=== PATIENT | male | born 1975 | race Caucasian/White ===

== ENCOUNTER 2017-11-22 12:18 | Inpatient (IN) ==
[2017-11-22] MEDS ORDERED: Ampicillin/Sulbactam 3,000 MG in 0.9 % Sodium Chloride Mini Bag 100 ML IVPB ONE (12:26)
[2017-11-22] MEDS ORDERED: Ketorolac 30 MG/ML VIAL IVP ONE (12:26)
[2017-11-22] MEDS ORDERED: Bumetanide 1 MG/4 ML VIAL IVP ONE (12:26)
--- NOTE | 2017-11-22 12:29 | Emergency Department Note ---
Disposition Clinical Impression: Cellulitis, Scalp laceration Disposition: Admitted As Inpatient Condition: Fair Referrals: NONE,PCP [Primary Care Provider] - Forms: ED Satisfaction Letter Time of Disposition: 12:35 ([facility] OBSHeather) Extremity Problem HPI - General Chief complaint: ED Extremity Problem,Nontraumatic Stated complaint: Bilat Leg pain and swelling Time Seen by Provider: 11/22/17 12:21 Source: EMS Mode of arrival: EMS Limitations: no limitations Nursing Notes Reviewed: Yes Vital Signs Reviewed: Yes - History of Present Illness HPI Narrative: 42-year-old man who has bilateral lower extremity swelling and edema redness hot to touch unable to bear weight because the pain swelling and weeping of the legs he states it just started earlier today she denies any fevers chills lightheadedness or dizziness patient states that he is unable to ambulate because of the swelling feels like he is walking on [employer] chest pain chest pressure palpitations cough hemoptysis or sputum production but does have strong cardiac history as well as congestive heart failure he is noncompliant with his medications and openly admits this he recently also had rola placed in his head and wants the rola removed Pt Subjective Complaint: extremity pain, extremity swelling Onset (ago): day(s) Consistency: constant, Worsening Injury Location: left, right, lower extremity Pain Scale: 10 Quality: aching Improves with: nothing Worsens with: weight bearing, walking Associated symptoms: Reports: myalgias, change in appearance, swelling, redness. Denies: chest pain, shortness of breath, abdominal pain, back pain, bowel/bladder symptoms, fever, arthralgias, rash - Related Data Allergies Allergy/AdvReac Type Severity Reaction Status Date / Time metformin Allergy See Verified 11/14/17 23:34 Comments All systems ED: reviewed and negative except as stated. Review of Systems: As Per HPI Constitutional: Denies: fever, chills, weakness Eyes: Denies: eye pain, eye discharge ENT ED: Denies: ear pain, throat pain Cardiovascular: Denies: chest pain Respiratory: Denies: cough, dyspnea Gastrointestinal: Denies: abdominal pain, nausea, vomiting Genitourinary: Denies: urgency, dysuria, frequency Musculoskeletal: Reports: other (R lower extremity edema 3+ pitting all the way up into the mid thighs bilaterally). Denies: back pain, neck pain Integumentary: Denies: rash, abrasion Neurological: Denies: headache, weakness Psychiatric: Denies: anxiety, depression Endocrine: Denies: fatigue Hematological/Lymphatic: Denies: easy bleeding Allergic/Immunologic: Denies: facial swelling Past Medical History - Past Medical History Attestation: Yes The following information was validated with the patient. Source: patient, old records reviewed, nursing notes reviewed Medical history: Reports: CHF, COPD, diabetes, hyperlipidemia, hypertension Surgical history: Reports: orthopedic, other (Right ankle surgery) Psychiatric history: Reports: anxiety - Social History Smoking Status: Current every day smoker Smokeless Tobacco Status: No Alcohol use: Reports: heavy, recent Drug use: Reports: marijuana Physical Exam - General Limitations: no limitations General appearance: alert, in no apparent distress - Head Head exam: normocephalic, normal inspection, other (Rola present within the scalp area is healing some scab formation but no redness or drainage) - Eye Eye exam: Present: normal appearance ( a piece to be healed), PERRL, EOMI - ENT ENT exam: normal exam, normal oropharynx, mucous membranes moist, TM's normal bilaterally, normal external ear exam - Neck Neck exam: Present: normal inspection, full ROM, trachea midline - Chest Chest inspection: Present: normal inspection, symmetric chest wall rise - Respiratory Respiratory exam: Present: normal lung sounds bilaterally - Cardiovascular Cardiovascular exam: Present: regular rate, normal rhythm, normal heart sounds - Abdominal Exam Abdominal exam: Present: soft, Non-Tender, normal bowel sounds - Expanded Upper Extremity Exam Shoulder exam: Present: normal inspection, full ROM Arm exam: Present: normal inspection, full ROM Elbow exam: Present: normal inspection, full ROM Forearm/Wrist exam: Present: normal inspection, full ROM Hand exam: Present: normal inspection, full ROM Vascular exam: Normal: capillary refill, radial pulse - Expanded Lower Extremity Exam Hip/Pelvis exam: Present: normal inspection, full ROM Upper leg exam: Present: normal inspection, full ROM, swelling Knee exam: Present: normal inspection, full ROM, swelling, erythema Lower leg exam: Present: normal inspection, full ROM, swelling, erythema Ankle exam: Present: normal inspection, full ROM, swelling, erythema Foot/toe exam: Present: normal inspection, full ROM, swelling, erythema, other ( Refill approximate 4 seconds on the digits) Neurovascular/Tendon exam: Present: normal capillary refill, normal fine/light touch. Absent: motor deficit, sensory deficit, tendon deficit Gait: unable to bear weight - Back Exam Back exam: Present: normal inspection, full ROM. Absent: muscle spasm - Neurological Exam Neurological exam: Present: oriented X3, CN II-XII intact - Psychiatric Psychiatric exam: Present: normal affect, normal mood - Skin Skin exam: Present: warm, dry, intact, normal color - Expanded Skin Exam 1 - Bilateral lower extremity swelling edema erythema 3+ pitting palpable pulses but very faint Course Course Narrative: Patient was immediately seen and examined laboratory data was started including blood cultures and lactic acid workup was done try to determine the etiology for swelling in the edema which is most likely secondary to a history of congestive heart failure with ventricular dysfunction started him on antibiotics because the evidence of cellulitis recommended hospitalization patient is agreeable with this time we'll discuss further with - Reevaluation(s) Reevaluation #1: Spoke with Dr. Delacruz who agrees for admission to his service Reevaluation #2: Patient is noted to drink an excessive amount will manage her with Serax CWAL recommended Vital Signs Temperature 99.1 F 11/22/17 12:21 Pulse Rate 109 11/22/17 12:21 Respiratory Rate 16 11/22/17 12:21 Blood Pressure 154/79 11/22/17 12:21 O2 Sat by Pulse Oximetry 95 11/22/17 12:21 Temperature 99.1 F 11/22/17 12:21 Pulse Rate 104 11/22/17 12:27 Respiratory Rate 16 11/22/17 12:21 Blood Pressure 154/79 11/22/17 12:21 O2 Sat by Pulse Oximetry 95 11/22/17 12:21 Oxygen Delivery Oxygen Delivery Room Air Extremity Problem, Nontraumati - Differential Diagnosis Likely: cellulitis, superficial thrombophlebitis, deep venous thrombosis, lower extremity edema - Medical Records Medical records reviewed: Yes I reviewed the patient's medical records. - Lab Data Lab results reviewed: Yes I reviewed the patient's lab results. Result diagrams: 11/22/17 12:45 Lab Results 11/22/17 Range/Units 12:45 WBC 6.8 (4.3-11.1) K/mcL RBC 4.54 (4.19-5.50) M/mcL Hgb 15.0 (12.9-16.9) g/dL Hct 42.2 (37.5-50.1) % MCV 93.0 (83.0-100.0) fL MCH 33.0 (28.0-33.3) pg MCHC 35.5 (31.6-35.5) g/dL RDW 14.1 (11.5-14.5) % Plt Count 183 (140-400) K/mcL MPV 9.9 (9.4-12.4) fL Immature Gran % 0.1 (0-4) % Seg Neutrophils % 45.8 % Lymphocytes % 40.8 % Monocytes % 11.3 % Eosinophils % 1.0 % Basophils % 1.0 % Neutrophils # 3.1 (1.6-8.9) K/mcL Lymphocytes # 2.8 (0.6-4.6) K/mcL Monocytes # 0.8 (0.0-1.3) K/mcL Eosinophils # 0.1 (0.0-0.6) K/mcL Basophils # 0.1 (0.0-0.2) K/mcL - Radiology Data Radiology results reviewed: Yes I reviewed the patient's radiology results. ITS Impressions Chest X-Ray 11/22/17 12:24 IMPRESSION: 1. No acute radiographic finding in the chest. No evidence of pulmonary edema. D/ / Bishnu Deng MD / Bishnu Deng MD Interpreting Provider: Bishnu Deng MD - EKG Data EKG attestation: Yes I reviewed and interpreted this EKG. EKG results narrative: Sinus tach rate 100 SD 144 QRS 89 QT 343 access -[address] segment elevation Critical Care Time Critical Care Time: No
[2017-11-22] MEDS ORDERED: 0.9 % Sodium Chloride 1,000 ML IVC SCH (12:30)
[2017-11-22 12:58] LABS: Basophils # 0.1 K/mcL (0.0-0.2); Eosinophils # 0.1 K/mcL (0.0-0.6); Hematocrit 42.2 % (37.5-50.1); Immature Granulocytes % 0.1 % (0-4); Lymphocytes # 2.8 K/mcL (0.6-4.6); Lymphocytes % 40.8 %; Mean Corpuscular HGB Conc 35.5 g/dL (31.6-35.5); Mean Platelet Volume 9.9 fL (9.4-12.4); Monocytes # 0.8 K/mcL (0.0-1.3); Monocytes % 11.3 %; Neutrophils # 3.1 K/mcL (1.6-8.9); Platelet Count 183 K/mcL (140-400); Red Blood Count 4.54 M/mcL (4.19-5.50); Red Cell Distribution Width 14.1 % (11.5-14.5); Segmented Neutrophils % 45.8 %
[2017-11-22 13:09] LABS: INR 0.9; Prothrombin Time 10.1 Seconds (9.4-12.1)
[2017-11-22 13:13] LABS: Bilirubin,Urine Negative (Negative); Blood,Urine Negative (Negative); Clarity,Urine Clear (Clear); Color,Urine Yellow (Yellow); Glucose,Urine (UA) Normal (Normal); Ketones,Urine Negative (Negative); Leukocyte Esterase,Urine Negative (Negative); Nitrite,Urine Negative (Negative); Protein,Urine Negative (Neg-Trace); Specific Gravity,Urine <= 1.005 (1.010-1.025); Urobilinogen,Urine Normal (Normal)
[2017-11-22 13:21] LABS: Ethanol 295 mg/dL (Less than 10); Magnesium 1.9 mg/dL (1.6-2.6)
[2017-11-22 13:22] LABS: Alanine Aminotransferase 111 Units/L (7-52); Albumin 3.8 g/dL (3.5-5.7); Albumin/Globulin Ratio 1.3 (1.1-2.2); Alkaline Phosphatase 125 Units/L (34-104); Aspartate Amino Transferase 126 Units/L (13-39); BUN/Creatinine Ratio 11 (6-26); Bilirubin,Total 0.5 mg/dL (0.3-1.0); Blood Urea Nitrogen 7 mg/dL (6-20); Calcium 8.2 mg/dL (8.6-10.3); Carbon Dioxide 20 mEq/L (23-29); Chloride 103 mEq/L (98-107); Globulin 2.9 g/dL (2.4-3.5); Glucose 161 mg/dL (70-105); Osmolality,Calculated 281 (280-300); Potassium 3.3 mEq/L (3.5-5.1); Sodium 135 mEq/L (136-145); Total Protein 6.7 g/dL (6.4-8.9); eGFR For African Americans > 60 (> 60); eGFR For Non-African Americans > 60 (> 60)
[2017-11-22 13:23] LABS: Amphetamine Screen,Urine Negative ng/mL (Cutoff=1000); Barbiturate Screen,Urine Negative ng/mL (Cutoff=200); Benzodiazepines Screen,Urine Negative ng/mL (Cutoff=200); Cannabinoid Screen,Urine Negative ng/mL (Cutoff = 50); Cocaine Screen,Urine Negative ng/mL (Cutoff= 300); Opiate Screen,Urine Negative ng/mL (Cutoff=300); Phencyclidine Screen,Urine Negative ng/mL (Cutoff=25)
[2017-11-22 13:23] LABS: Troponin I < 0.03 ng/mL (< 0.04)
[2017-11-22 13:36] LABS: Thyroid Stimulating Hormone 1.226 mcIU/mL (0.340-5.600)
[2017-11-22] MEDS ORDERED: D5% in Water 1,000 ML IVC PRN (13:58)
[2017-11-22] MEDS ORDERED: Dextrose Gel 15 GM/37.5 ML TUBE PO PRN ×2 (13:58)
[2017-11-22] MEDS ORDERED: *HR* Dextrose 50 % in Water (Syg) 50 ML SYRINGE IVP PRN (13:58)
[2017-11-22] MEDS ORDERED: Naloxone 0.4 MG/ML INJ IVP PRN (13:58)
[2017-11-22] MEDS ORDERED: *HR* LORazepam 2 MG/ML VIAL IVP PRN (17:21)
[2017-11-22] MEDS: 0.9 % Sodium Chloride 1,000 ML IVC SCH ×2 (17:59→20:03)
[2017-11-22] MEDS: *HR* LORazepam 2 MG/ML VIAL IVP PRN ×4 (18:01→21:41)
[2017-11-22] MEDS: Nicotine 21 MG PATCH.TD24 TD SCH (18:01)
[2017-11-22] MEDS: Bumetanide 1 MG/4 ML VIAL IVP SCH (18:02)
[2017-11-22] MEDS: Insulin LISPRO 300 UNITS/3 ML VIAL SQ SCH (18:10)
[2017-11-22] MEDS: *HR* Promethazine 25 MG/ML VIAL IVP PRN (20:01)
[2017-11-22] MEDS: Gabapentin 400 MG CAPSULE PO SCH (20:01)
[2017-11-22] MEDS: ceFAZolin 1,000 MG in Water for inj. (sterile) 20 ML 10 ML IVP SCH (20:02)
[2017-11-22] MEDS: Thiamine (B-1) 100 MG, Folic Acid 1 MG, MVI, adult with vitamin K 10 ML in 0.9 % Sodi... IVPB SCH (20:03)
[2017-11-22] MEDS: traMADol 50 MG TABLET PO PRN (21:40)
[2017-11-23] MEDS: *HR* LORazepam 2 MG/ML VIAL IVP PRN ×9 (00:07→23:59)
[2017-11-23] MEDS: ceFAZolin 1,000 MG in Water for inj. (sterile) 20 ML 10 ML IVP SCH ×4 (00:55→19:57)
[2017-11-23] MEDS: traMADol 50 MG TABLET PO PRN ×2 (04:12→14:24)
[2017-11-23] MEDS: *HR* Promethazine 25 MG/ML VIAL IVP PRN ×2 (04:13→09:26)
[2017-11-23] MEDS: 0.9 % Sodium Chloride 1,000 ML IVC SCH (04:24)
[2017-11-23 06:15] LABS: Basophils % 0.6 %; Eosinophils # 0.1 K/mcL (0.0-0.6); Eosinophils % 1.7 %; Hematocrit 40.4 % (37.5-50.1); Hemoglobin 13.9 g/dL (12.9-16.9); Immature Granulocytes % 0.4 % (0-4); Lymphocytes # 1.6 K/mcL (0.6-4.6); Lymphocytes % 34.7 %; Mean Corpuscular HGB Conc 34.4 g/dL (31.6-35.5); Mean Corpuscular Hemoglobin 32.3 pg (28.0-33.3); Mean Platelet Volume 10.5 fL (9.4-12.4); Monocytes # 0.5 K/mcL (0.0-1.3); Monocytes % 10.2 %; Neutrophils # 2.5 K/mcL (1.6-8.9); Platelet Count 132 K/mcL (140-400); Segmented Neutrophils % 52.4 %
[2017-11-23 06:29] LABS: INR 0.9; Prothrombin Time 10.1 Seconds (9.4-12.1)
[2017-11-23 06:32] LABS: Activated Partial Thrombo Time 30.2 Seconds (26.0-36.0); BUN/Creatinine Ratio 15 (6-26); Blood Urea Nitrogen 9 mg/dL (6-20); Carbon Dioxide 25 mEq/L (23-29); Chloride 102 mEq/L (98-107); Glucose 116 mg/dL (70-105); Osmolality,Calculated 278 (280-300); Potassium 3.4 mEq/L (3.5-5.1); Sodium 134 mEq/L (136-145); eGFR For African Americans > 60 (> 60); eGFR For Non-African Americans > 60 (> 60)
[2017-11-23] MEDS ORDERED: Aspirin Enteric Coated 81 MG Tablet PO SCH (09:00)
[2017-11-23] MEDS: Bumetanide 1 MG/4 ML VIAL IVP SCH ×2 (09:26→17:31)
[2017-11-23] MEDS: Thiamine (B-1) 100 MG TABLET PO SCH (09:27)
[2017-11-23] MEDS: Folic Acid 1 MG TABLET PO SCH (09:27)
[2017-11-23] MEDS: Insulin LISPRO 300 UNITS/3 ML VIAL SQ SCH ×3 (09:27→17:42)
[2017-11-23] MEDS: Vitamin B Complex/Vit C/Vit E 1 EACH TABLET PO SCH (09:27)
[2017-11-23] MEDS: Gabapentin 400 MG CAPSULE PO SCH ×3 (09:27→20:25)
[2017-11-23] MEDS: Nicotine 21 MG PATCH.TD24 TD SCH (09:27)
[2017-11-23 09:35] LABS: Estimated Average Glucose 140 mg/dl; Hemoglobin A1C 6.5 %
--- NOTE | 2017-11-23 10:12 | Electrocardiograph Report ---
[address] [address] Test Date: 2017-11-22 Pat Name: Shashi Ryan Department: [id number] Room: [facility] Gender: M [employer]ent Development Consultant: [id number] : 1975 Requested By: Meera Higgins Order Number: [id number] Reading MD: Carloz Lugo Measurements Intervals [place] Rate: 100 P: 18 MN: 144 QRS: -26 QRSD: 89 T: 37 QT: 343 QTc: 400 Interpretive Statements SINUS TACHYCARDIA INFERIOR MYOCARDIAL INFARCTION, PROBABLY OLD Electronically Signed On 11-23-2017 10:10:56 EDT by Carloz Lugo
--- NOTE | 2017-11-23 11:28 | Internal Med History&Physical ---
Date of Encounter: 11/23/17 Time of Encounter: 10:55 Assessment and Plan (1) Cellulitis Current visit: Yes Status: Acute He was given IV Unasyn in emergency room. He is now on IV Ancef. There appears to be minimal cellulitis at this time. Qualifiers: Site of cellulitis: extremity Site of cellulitis of extremity: lower extremity Laterality: unspecified laterality Qualified Code(s): L03.119 - Cellulitis of unspecified part of limb (2) CHF (congestive heart failure) Current visit: Yes Status: Acute Will order echocardiogram to further evaluate. BN peptide was normal in ER at 21. Qualifiers: Heart failure type: unspecified Heart failure chronicity: unspecified Qualified Code(s): I50.9 - Heart failure, unspecified (3) Hypokalemia Current visit: Yes Status: Acute Will order supplemental potassium. (4) Elevated transaminase level Current visit: Yes Status: Acute Suspect due to alcoholic hepatitis. Will order CT of abdomen pelvis and chest to further evaluate this and reported 50 pound weight gain. (5) Alcoholism Current visit: Yes Status: Acute Withdrawing without complications. Internal Medicine - H&P: HPI Chief complaint: Edema Admitted From: Emergency Dept Plans for Post Hospital Care: Home History of present illness: Mr. Ryan is a 42 year old male came to emergency room complaining of bilateral lower leg edema present for at least 2 months. He is groggy at present time from medication to states he had edema with increased dyspnea onset 2 months ago. He has not seen a PCP in over a year. He states he finally got a ride to the hospital yesterday. He was evaluated and felt to have bilateral lower leg cellulitis. [facility] He states he drinks approximately 50 cans of beer per day. Past Med Surg Social Fam HX - Past Medical History Medical history: CHF, COPD, diabetes, hyperlipidemia, hypertension Psychiatric history: anxiety - Past Surgical History Surgical History: orthopedic, other Additional surgical history: Tongue sx. low back surgery. Maximino rt lower leg - Social History Smoking Status: Current every day smoker Packs per day: 1.5 Smokeless Tobacco Status: No Alcohol use: heavy, recent Drug use: marijuana Internal Medicine - H&P: Meds Gabapentin [Neurontin] 800 mg PO QID 11/22/17 [History] Zolpidem [Ambien] 10 mg PO HS 11/22/17 [History] 3 Allergy/AdvReac Type Severity Reaction Status Date / Time metformin Allergy See Verified 11/14/17 23:34 Comments All Systems PM: A 10-system review of systems was performed and is negative for pertinent findings except as documented above in the HPI. Review of systems: Gen.: He states his weight is increased approximately 50 pounds in the past year Cardiovascular: He has history of hypertension. He states he was diagnosed with heart failure approximately 5 years ago and was given medication but did not follow-up for refills after initial dispense ran out. He denies IN DVT or pulmonary embolus. Respiratory: He has smoked since age 7 up to 2 packs per day. He has not had PFTs and does not use home oxygen. He has not been tested for SARAH. GI: He denies document and disorders of his liver gallbladder or exocrine pancreas. He has had lower abdominal pain present for several weeks. : Denies hematuria dysuria or kidney stones Neurologic: He denies large distribution strokes or seizures. Endocrine: He was diagnosed with DM 2 approximately one year ago. He denies thyroid disease or hyperlipidemia Hematology/oncology: He denies blood disorders cancers or anemia Psychiatric: He has anxiety and depression Musk skeletal: He has had right ankle fracture requiring surgical repair several years ago. He has back injury over 20 years ago and is now on SSI disability. - Constitutional Vitals: Temp Pulse Resp BP Pulse Ox 98.4 F 89 16 152/103 96 11/23/17 10:00 11/23/17 10:00 11/23/17 10:00 11/23/17 10:11/23/17 10:00 Exam: Gen.: He is a well-developed well-nourished male who is groggy but appears in no acute distress who complains of pain in his lower abdomen and bilateral mastalgia. HEENT: Head is atraumatic and normal cephalic. Eyes: EOMI. There is no scleral icterus. Mouth: Mucosa is moist. Neck: Supple and nontender. There is no thyromegaly or adenopathy noted. Heart: Regular with rate approximately 108/m. Lungs: He has rare rhonchi. No expiratory wheezing or inspiratory crackles are heard. Abdomen: There is mild tenderness to palpation of the lower abdominal area diffusely. No masses or guarding are noted. Extremities: He has 1+ edema of the dorsum of the feet and lower legs bilaterally. Dorsalis pedis and posterior tibial pulses are nonpalpable. His feet are warm to touch. Neurologic: Mental status: He is groggy but seems to answer questions generally appropriately. Accuracy is unknown. Cranial nerves: Smile is symmetric. Forehead wrinkles bilaterally. Tongue protrudes midline. EOMI. Motor: There is no pronator drift. Cerebellar: Finger to nose is intact bilaterally. Skin: Warm and dry. There is no significant cellulitis on the lower legs at this time. He has left posterior lateral bruise on his mid lower back. Internal Med - H&P Results - Labs CBC & Chem 7: 11/23/17 04:27 11/23/17 04:27 Labs: Short CBC 11/23/17 Range/Units 04:27 WBC 4.7 (4.3-11.1) K/mcL Hgb 13.9 (12.9-16.9) g/dL Hct 40.4 (37.5-50.1) % Plt Count 132 L (140-400) K/mcL Neutrophils # 2.5 (1.6-8.9) K/mcL BMP 11/23/17 04:27 Sodium 134 L Potassium 3.4 L Chloride 102 Carbon Dioxide 25 BUN 9 Creatinine 0.62 L Glucose 116 H Calcium 8.0 L
[2017-11-23] MEDS: Thiamine (B-1) 100 MG, Folic Acid 1 MG, MVI, adult with vitamin K 10 ML in 0.9 % Sodi... IVPB SCH (17:46)
[2017-11-23] MEDS: *HR* HYDROcodone/Acet 5/325 mg TABLET PO PRN ×2 (18:04→22:07)
[2017-11-23] MEDS: Lactobacillus 1 EACH CAP.SPRINK PO SCH (20:01)
[2017-11-23 20:07] LABS: Vitamin B12 416 pg/mL (250-1100)
[2017-11-23 20:09] LABS: Folate > 22.3 ng/mL (3.0-16.0)
[2017-11-24] MEDS: *HR* LORazepam 2 MG/ML VIAL IVP PRN ×5 (01:13→08:49)
[2017-11-24] MEDS: *HR* HYDROcodone/Acet 5/325 mg TABLET PO PRN ×2 (02:05→06:08)
[2017-11-24] MEDS: ceFAZolin 1,000 MG in Water for inj. (sterile) 20 ML 10 ML IVP SCH (04:08)
[2017-11-24 06:28] LABS: Alanine Aminotransferase 80 Units/L (7-52); Albumin 3.5 g/dL (3.5-5.7); Albumin/Globulin Ratio 1.3 (1.1-2.2); Alkaline Phosphatase 112 Units/L (34-104); Aspartate Amino Transferase 99 Units/L (13-39); BUN/Creatinine Ratio 11 (6-26); Bilirubin,Total 0.8 mg/dL (0.3-1.0); Blood Urea Nitrogen 8 mg/dL (6-20); Carbon Dioxide 30 mEq/L (23-29); Chloride 96 mEq/L (98-107); Globulin 2.7 g/dL (2.4-3.5); Glucose 137 mg/dL (70-105); Osmolality,Calculated 278 (280-300); Potassium 3.7 mEq/L (3.5-5.1); Sodium 134 mEq/L (136-145); Total Protein 6.2 g/dL (6.4-8.9); eGFR For African Americans > 60 (> 60); eGFR For Non-African Americans > 60 (> 60)
[2017-11-24 07:22] VITALS: BP 148/101
[2017-11-24] MEDS: Insulin LISPRO 300 UNITS/3 ML VIAL SQ SCH (08:48)
[2017-11-24] MEDS: Bumetanide 1 MG/4 ML VIAL IVP SCH (08:48)
[2017-11-24] MEDS: Nicotine 21 MG PATCH.TD24 TD SCH (08:49)
[2017-11-24] MEDS: Gabapentin 400 MG CAPSULE PO SCH (08:49)
[2017-11-24] MEDS: Lactobacillus 1 EACH CAP.SPRINK PO SCH (08:49)
[2017-11-24] MEDS: Thiamine (B-1) 100 MG TABLET PO SCH (08:49)
[2017-11-24] MEDS: Folic Acid 1 MG TABLET PO SCH (08:49)
[2017-11-24] MEDS: Vitamin B Complex/Vit C/Vit E 1 EACH TABLET PO SCH (08:49)
--- NOTE | 2017-11-24 10:10 | Discharge Summary ---
Date of Encounter: 11/24/17 Time of Encounter: 09:50 - Discharge Diagnosis (1) Cellulitis Priority: Primary Status: Acute Qualifiers: Site of cellulitis: extremity Site of cellulitis of extremity: lower extremity Laterality: unspecified laterality Qualified Code(s): L03.119 - Cellulitis of unspecified part of limb (2) Hypokalemia Priority: Secondary Status: Acute (3) Elevated transaminase level Priority: Secondary Status: Acute (4) Alcoholism Priority: Secondary Status: Chronic Hospital course: Mr. Ryan is a 42 year old male who came to emergency room complaining of bilateral lower leg edema present for at least 2 months. He is groggy at present time from medication but states he has had edema with increased dyspnea onset 2 months ago. He has not seen a PCP in over a year. He states he finally got a ride to the hospital yesterday. He was evaluated and felt to have bilateral lower leg cellulitis. He was admitted to [facility] for ongoing care needs. Initial orders were written by the emergency room physician. I saw him on November 23 and performed the history and physical. He was given IV Unasyn in emergency room. I changed him to IV Ancef with lactobacillus. There appeared to be no significant cellulitis present at time of discharge. He will continue with oral Keflex with lactobacillus for 2 additional days at discharge. An echocardiogram was ordered to further evaluate edema and history of heart failure. The LVEF was 60-65%. There was mild LV diastolic dysfunction. No significant valvular abnormalities were seen. CT of chest abdomen and pelvis was done to further evaluate a reported 50 pound weight gain. No worrisome findings were noted. There was no abdominal mass or ascites seen. He was given IV Bumex and had significant diuresis. He will continue with oral Bumex and supplement potassium and magnesium at discharge. I gave him a 10 day supply for most of his home medications. Gabapentin dose was reduced to 400 mg 3 times a day to lessen edema. He will receive 5 day supply of Ativan for alcohol withdrawal symptoms. Follow-up labs on 11/24/2017 showed potassium normal at 3.7. AST, ALT, and alkaline phosphatase were improved. B12 and folate were unremarkable. I felt he was stable for discharge home. I strongly counseled him to discontinue use of tobacco and alcohol. He wished to follow with Dr. Verdin after discharge. - Time Spent with Patient Total time spent providing and/or coordinating discharge services: - Discharge Medications Prescriptions: Bumetanide [Bumex] 0.5 mg PO DAILY #5 tablet cephALEXin [Keflex] 500 mg PO TID #6 capsule Gabapentin [Neurontin] 400 mg PO TID 10 Days #30 capsule Lactobacillus [Culturelle] 1 each PO BID #4 cap.sprink LORazepam [Ativan] 1 mg PO TID PRN 5 Days #15 tablet PRN Reason: Anxiety Magnesium Oxide [Mag-Ox] 400 mg PO DAILY #10 tablet Potassium Chloride 10 meq PO DAILY #10 tab.er.prt Home Medications: Zolpidem [Ambien] 10 mg PO HS 11/22/17 [History] Bumetanide [Bumex] 0.5 mg PO DAILY #5 tablet 11/24/17 [Rx] Gabapentin [Neurontin] 400 mg PO TID 10 Days #30 capsule 11/24/17 [Rx] LORazepam [Ativan] 1 mg PO TID PRN 5 Days #15 tablet 11/24/17 [Rx] Lactobacillus [Culturelle] 1 each PO BID #4 cap.sprink 11/24/17 [Rx] Magnesium Oxide [Mag-Ox] 400 mg PO DAILY #10 tablet 11/24/17 [Rx] Potassium Chloride 10 meq PO DAILY #10 tab.er.prt 11/24/17 [Rx] cephALEXin [Keflex] 500 mg PO TID #6 capsule 11/24/17 [Rx] Allergies/Adverse Reactions: 3 Allergy/AdvReac Type Severity Reaction Status Date / Time metformin Allergy See Verified 11/14/17 23:34 Comments Date of admission: 11/23/17 15:20 Primary care physician: PCP NONE - Constitutional Vitals: Temp Pulse Resp BP Pulse Ox 97.2 F L 81 16 148/101 95 11/24/17 07:00 11/24/17 07:00 11/24/17 07:00 11/24/17 07:00 11/24/17 07:00 - Patient Status Disposition: Home, Self-Care Condition: Fair Functional capacity at discharge: independent ambulation Overall status at discharge: patient is progressing back to baseline - Discharge Instructions Follow Up With: Elvin Verdin MD [Partnered Physician] - 1 week - Diet and Activity Activity: resume usual activities as tolerated Diet: regular diet
== END 2017-11-24 11:01 | disposition home or self-care (01) | DRG 603 ==
LOC: INPPIK 12:18 → EMEROOPIK 12:18 → INPPIK 14:23
PROVIDERS: ADMIT Internal Medicine; ATTEND Internal Medicine